=== PATIENT | female | born 1990 | race Caucasian/White ===

== ENCOUNTER 2019-03-12 07:10 | Inpatient (IN) | payer SELFPAY ==
[2019-03-12] MEDS ORDERED: Benzocaine/Menthol 20%-0.5% Spray 78 GM Cannister TOP PRN (07:57)
[2019-03-12] MEDS ORDERED: Lanolin 100% Cream 7 GM Tube TOP PRN (07:57)
[2019-03-12] MEDS ORDERED: Ibuprofen 400 MG Tab PO PRN (07:57)
[2019-03-12] MEDS ORDERED: oxyCODONE 5 MG Tab PO PRN (07:57)
[2019-03-12] MEDS ORDERED: Witch Hazel Medicated Pads 40/Jar TOP PRN (07:57)
[2019-03-12] MEDS ORDERED: Bisacodyl 10 MG Supp RECTAL PRN (07:57)
[2019-03-12] MEDS ORDERED: Docusate Sodium 100 MG Cap PO PRN (07:57)
[2019-03-12] MEDS ORDERED: Acetaminophen 500 MG Tab PO PRN ×2 (07:57)
--- NOTE | 2019-03-12 07:57 | PCM.LDHP ---
L&D History of Present Illness - General Date of Service: 03/05/19 Admit Problem/Dx: Admission Diagnosis/Problem Admission Diagnosis/Problem Source of Information: Patient History Limitations: Reports: No Limitations - History of Present Illness Improves with: Reports: None Worsens with: Reports: None Associated Symptoms: Reports: N - Related Data Allergies/Adverse Reactions: Allergies Allergy/AdvReac Type Severity Reaction Status Date / Time No Known Allergies Allergy Verified 02/08/19 13:26 Home Medications: Home Meds PNV #116/Iron Fumarate/FA/DHA [Expecta Combo Pack] 02/12/19 [History] H&P Review of Systems - Review of Systems: Review Of Systems: See Below General: Reports: No Symptoms HEENT: Reports: No Symptoms Pulmonary: Reports: No Symptoms Cardiovascular: Reports: No Symptoms Gastrointestinal: Reports: No Symptoms Genitourinary: Reports: No Symptoms Musculoskeletal: Reports: No Symptoms Skin: Reports: No Symptoms Psychiatric: Reports: No Symptoms Neurological: Reports: No Symptoms Hematologic/Lymphatic: Reports: No Symptoms Immunologic: Reports: No Symptoms L&D Exam - Exam Exam: See Below - Terry Score Terry Score Cervix Position: Anterior Terry Score Consistency: Soft Terry Score Effacement: >80% Terry Score Dilation: > 5 cm Terry Score Infant's Station: +1, +2 Terry Score Total: 13 Problem List Initiated/Reviewed/Updated: Yes Assessment/Plan Comment:: Pt. presented C/C and had a precepetus labor attended by the L&D personal
[2019-03-12] MEDS: Ibuprofen 800 MG Tab PO PRN ×2 (10:04→20:30)
[2019-03-13] MEDS: Ibuprofen 800 MG Tab PO PRN (03:35)
--- NOTE | 2019-03-13 10:52 | PCM.DCSUM1 ---
Discharge Summary - Hospital Course Diagnosis: Stroke: No - Discharge Data Discharge Date: 03/13/19 Discharge Disposition: Home, Self-Care 01 Condition: Good - Referral to Home Health Primary Care Physician: PCP None - Patient Instructions Diet: Usual Diet as Tolerated Activity: As Tolerated Showering/Bathing: May Shower - Discharge Plan Home Medications: Home Meds PNV #116/Iron Fumarate/FA/DHA [Expecta Combo Pack] 1 tab PO DAILY 02/12 [History] - Discharge Summary/Plan Comment DC Time >30 min.: Yes - General Info Date of Service: 03/13/19 Functional Status: Reports: Pain Controlled - Review of Systems General: Reports: No Symptoms HEENT: Reports: No Symptoms Pulmonary: Reports: No Symptoms Cardiovascular: Reports: No Symptoms Gastrointestinal: Reports: No Symptoms Genitourinary: Reports: No Symptoms Musculoskeletal: Reports: No Symptoms Skin: Reports: No Symptoms Neurological: Reports: No Symptoms Psychiatric: Reports: No Symptoms - Patient Data Vitals - Most Recent: Last Vital Signs Temp 36.5 C 03/13/19 08:00 Pulse 89 03/13/19 08:00 Resp 18 03/13/19 08:00 BP 107/71 03/13/19 08:00 Pulse Ox 99 03/13/19 08:00 Weight - Most Recent: 80.739 kg Lab Results - Last 24 hrs: Laboratory Results - last 24 hr 03/13/19 Range/Units 05:30 Hgb 11.1 L (12.0-16.0) g/dL Hct 34.3 L (36.0-46.0) % Med Orders - Current: Current Medications Acetaminophen (Tylenol Extra Strength) 500 mg PO Q4H PRN PRN Reason: Pain Acetaminophen (Tylenol Extra Strength) 1,000 mg PO Q4H PRN PRN Reason: Pain Benzocaine/Menthol (Dermoplast Pain Relief 20%-0.5% Hope) 78 gm TOP ASDIRECTED PRN PRN Reason: Perineal Comfort Measure Bisacodyl (Dulcolax) 10 mg RECTAL ONETIME PRN PRN Reason: Constipation Docusate Sodium (Colace) 100 mg PO BID PRN PRN Reason: Constipation Emollient Ointment (Lansinoh Hpa) 0 gm TOP ASDIRECTED PRN PRN Reason: Sore Nipples Ibuprofen (Motrin) 400 mg PO Q4H PRN PRN Reason: Pain Ibuprofen (Motrin) 800 mg PO Q6H PRN PRN Reason: Pain Last Admin: 03/13/19 03:35 Dose: 800 mg Oxycodone HCl (Oxycodone) 5 mg PO Q2H PRN PRN Reason: Pain Witch Roselia (Tucks) 1 pad TOP ASDIRECTED PRN PRN Reason: comfort care - Exam General: Reports: Alert, Oriented HEENT: Reports: Pupils Equal, Pupils Reactive, EOMI, Mucous Membr. Moist/[place] Neck: Reports: Supple Lungs: Reports: Clear to Auscultation, Normal Respiratory Effort Cardiovascular: Reports: Regular Rate, Regular Rhythm GI/Abdominal Exam: Normal Bowel Sounds, Soft, Non-Tender, No Organomegaly, No Distention, No Abnormal Bruit, No Mass, Pelvis Stable (Female) Exam: Normal External Exam, Normal Speculum Exam, Normal Bimanual Exam Rectal (Female) Exam: Normal Exam, Normal Rectal Tone Back Exam: Reports: Normal Inspection, Full Range of Motion Extremities: Normal Inspection, Normal Range of Motion, Non-Tender, No Pedal Edema, Normal Capillary Refill Skin: Reports: Warm, Dry, Intact Wound/Incisions: Reports: Healing Well Neurological: Reports: No New Focal Deficit Psy/Mental Status: Reports: Alert, Normal Affect, Normal Mood
== END 2019-03-13 11:52 | disposition home or self-care (01) | DRG 807 ==
LOC: MW.OBCHECK 07:10 → OBSVTOIN 07:16 → MW.OB 07:16 → MW.OBCHECK 07:16 → MW.OB 07:21 → MW.OBCHECK 07:21 → MW.OB 11:49
PROVIDERS: ADMIT Obstetrics & Gynecology; ATTEND Obstetrics & Gynecology
PROC: 10E0XZZ Delivery of Products of Conception, External Approach (ICD-10-PCS; principal; 2019-03-12)
DX: O62.3 Precipitate labor (principal); Z37.0 Single live birth; Z3A.39 39 weeks gestation of pregnancy
CPT/HCPCS: 36415; 59409; 85014; 85018; A9270-GY

== ENCOUNTER 2022-11-13 19:03 | Inpatient (IN) | payer SELFPAY ==
[2022-11-13] MEDS ORDERED: Water For Irrigation,Sterile 1,000 ML Container IRR PRN (19:49)
[2022-11-13] MEDS ORDERED: Lidocaine 1% 50 ML MDV INJECT PRN (19:49)
[2022-11-13] MEDS ORDERED: Sodium Chloride 0.9% 20 ML SDV IV PRN (19:49)
[2022-11-13] MEDS ORDERED: Tranexamic Acid 1,000 MG in Sodium Chloride 0.9% 100 ML IV PRN (19:49)
[2022-11-13] MEDS ORDERED: Methylergonovine 0.2 MG/1 ML Amp IM PRN (19:49)
[2022-11-13] MEDS ORDERED: Sodium Chloride 0.9% 2.5 ML Syringe FLUSH PRN (19:49)
[2022-11-13] MEDS ORDERED: Misoprostol 200 MCG Tab PO PRN (19:49)
[2022-11-13] MEDS ORDERED: Butorphanol 1 MG/ML SDV IVPUSH PRN (19:49)
[2022-11-13] MEDS ORDERED: Ondansetron 4 MG/2 ML SDV IVPUSH PRN (19:49)
[2022-11-13] MEDS ORDERED: Sodium Chloride 0.9% 10 ML Syringe FLUSH PRN (19:49)
[2022-11-13] MEDS ORDERED: Carboprost Tromethamine 250 MCG/1 mL Vial IM PRN (19:49)
[2022-11-13] MEDS ORDERED: Lactated Ringers 1,000 ML IV SCH (20:00)
[2022-11-13] MEDS ORDERED: Oxytocin/0.9 % Sodium Chloride 30 UNIT/500 ML BAG IV SCH (20:00)
[2022-11-13 20:08] LABS: HEMATOCRIT 37.3 % (36.0-46.0); HEMOGLOBIN 12.5 g/dL (12.0-16.0); MEAN CORPUSCULAR HEMOGLOBIN 29.2 pg (27.0-32.0); MEAN CORPUSCULAR HGB CONC 33.5 g/dL (31.0-37.0); MEAN CORPUSCULAR VOLUME 87.1 fL (80.0-98.0); MEAN PLATELET VOLUME 11.5 fL (7.40-12.00); RED BLOOD CELL COUNT 4.28 M/uL (4.30-5.90); WHITE BLOOD CELL COUNT,WBC 15.85 K/uL (4.0-11.0)
[2022-11-13] MEDS ORDERED: Benzocaine/Menthol 20%-0.5% Spray 78 GM Cannister TOP PRN (20:38)
[2022-11-13] MEDS ORDERED: Ibuprofen 800 MG Tab PO PRN (20:38)
[2022-11-13] MEDS ORDERED: oxyCODONE 5 MG Tab PO PRN (20:38)
[2022-11-13] MEDS ORDERED: Ibuprofen 400 MG Tab PO PRN (20:38)
[2022-11-13] MEDS ORDERED: Bisacodyl 10 MG Supp RECTAL PRN (20:38)
[2022-11-13] MEDS ORDERED: Acetaminophen 500 MG Tab PO PRN ×2 (20:38)
[2022-11-13] MEDS ORDERED: Witch Hazel Medicated Pads 40/Jar TOP PRN (20:38)
[2022-11-13] MEDS ORDERED: Docusate Sodium 100 MG Cap PO PRN (20:38)
[2022-11-13] MEDS ORDERED: Lanolin 100% Cream 7 GM Tube TOP PRN (20:38)
[2022-11-14 06:25] LABS: HEMATOCRIT 34.5 % (36.0-46.0); HEMOGLOBIN 11.3 g/dL (12.0-16.0)
== END 2022-11-15 12:15 | disposition home or self-care (01) | DRG 807 ==
LOC: MW.OB 19:03 → OBSVTOIN 20:42 → MW.OB 23:27
PROVIDERS: ADMIT Obstetrics & Gynecology Obstetrics; ATTEND Obstetrics & Gynecology Obstetrics
PROC: 10E0XZZ Delivery of Products of Conception, External Approach (ICD-10-PCS; principal; 2022-11-13)
PROC: 10907ZC Drainage of Amniotic Fluid, Therapeutic from Products of Conception, Via Natural or Artificial Opening (ICD-10-PCS; 2022-11-13)
DX: O99.52 Diseases of the respiratory system complicating childbirth (principal); Z37.0 Single live birth; Z3A.40 40 weeks gestation of pregnancy; O77.0 Labor and delivery complicated by meconium in amniotic fluid; J45.909 Unspecified asthma, uncomplicated
CPT/HCPCS: 36415; 59025; 85014; 85018; 85027; 86592; 86850; 86900; 86901; A9270-GY; J2590

== ENCOUNTER 2024-02-24 13:59 | Emergency (ER) | payer SELFPAY ==
[2024-02-24 14:52] LABS: CORONAVIRUS COVID-19 NAA NEGATIVE (NEGATIVE); INFLUENZA A NAA NEGATIVE (NEGATIVE); INFLUENZA B NAA NEGATIVE (NEGATIVE)
== END 2024-02-24 15:44 | disposition home or self-care (01) ==
LOC: MW.ED 13:59
DX: J18.9 Pneumonia, unspecified organism (principal); Z75.8 Other problems related to medical facilities and other health care; J45.909 Unspecified asthma, uncomplicated; Z90.49 Acquired absence of other specified parts of digestive tract
CPT/HCPCS: 0240U; 71046; 99285; 99284

== ENCOUNTER 2024-08-18 19:06 | Emergency (ER) | payer SELFPAY ==
[2024-08-18] MEDS ORDERED: Sodium Chloride 0.9% 20 ML SDV IV PRN (19:43)
[2024-08-18] MEDS ORDERED: Sodium Chloride 0.9% 2.5 ML Syringe FLUSH PRN (19:43)
[2024-08-18] MEDS ORDERED: Sodium Chloride 0.9% 10 ML Syringe FLUSH PRN (19:43)
[2024-08-18 19:49] LABS: BASOPHILS ABSOLUTE AUTO 0.02 K/uL (0.00-0.20); BASOPHILS PERCENT AUTO 0.2 % (0.0-1.0); EOSINOPHILS ABSOLUTE AUTO 0.03 K/uL (0.00-0.45); EOSINOPHILS PERCENT AUTO 0.3 % (0.0-6.0); HEMATOCRIT 41.2 % (37.0-47.0); HEMOGLOBIN 14.4 g/dL (12.0-16.0); IMMATURE GRAN ABSOLUTE AUTO 0.04 K/uL (0.00-0.05); IMMATURE GRAN PERCENT AUTO 0.4 % (0.0-0.4); LYMPHOCYTES ABSOLUTE AUTO 2.63 K/uL (1.00-4.80); LYMPHOCYTES PERCENT AUTO 24.5 % (24.0-44.0); MEAN CORPUSCULAR HEMOGLOBIN 28.9 pg (28.0-32.0); MEAN CORPUSCULAR VOLUME 82.6 fL (83.0-99.0); MEAN PLATELET VOLUME 11.9 fL (9.4-12.3); MONOCYTES ABSOLUTE AUTO 0.58 K/uL (0.00-0.80); MONOCYTES PERCENT AUTO 5.4 % (0.0-8.0); NEUTROPHILS ABSOLUTE AUTO 7.45 K/uL (1.80-7.70); NEUTROPHILS PERCENT AUTO 69.2 % (41.0-71.0); PLATELET COUNT,PLT 247 K/uL (150-400); RED BLOOD CELL COUNT 4.99 M/uL (4.10-5.30); WHITE BLOOD CELL COUNT,WBC 10.75 K/uL (3.9-11.3)
[2024-08-18 19:57] LABS: APPEARANCE,URINE CLEAR; BILIRUBIN,URINE NEGATIVE (NEGATIVE); COLOR,URINE YELLOW; GLUCOSE,URINE NEGATIVE (NEGATIVE); KETONES,URINE 40 mg/dL (NEGATIVE); LEUKOCYTE ESTERASE,URINE NEGATIVE (NEGATIVE); NITRITE,URINE NEGATIVE (NEGATIVE); OCCULT BLOOD,URINE TRACE-INTACT (NEGATIVE); PROTEIN,URINE NEGATIVE (NEGATIVE); UROBILINOGEN,URINE 0.2 EU/dL (<2.0)
[2024-08-18 20:04] LABS: BACTERIA,URINE FEW (NEGATIVE); EPITHELIAL CELLS,URINE FEW (NONE-FEW); RBC,URINE 0-2 (0-2/HPF); WBC,URINE 0-2 (0-5/HPF)
[2024-08-18 20:23] LABS: A/G RATIO 1.2 (0.9-1.6); ALANINE AMINOTRANSFERASE,ALT 30 IU/L (14-63); ALBUMIN 4.6 g/dL (3.4-5.0); ALKALINE PHOSPHATASE 107 U/L (46-116); ASPARTATE AMNIOTRANSFERASE,AST 13 IU/L (15-37); BILIRUBIN TOTAL 0.6 mg/dL (0.2-1.0); BLOOD UREA NITROGEN,BUN 15 mg/dL (7.0-18.0); CALCIUM 9.7 mg/dL (8.5-10.1); CARBON DIOXIDE,CO2 19.8 mmol/L (21.0-32.0); CHLORIDE,CL 105 mmol/L (98-107); CREATININE 0.9 mg/dL (0.6-1.0); EST CRCL DRUG DOSING (CG) 79.25 mL/min; ESTIMATED GFR 86 mL/min (>60); GLUCOSE RANDOM 100 mg/dL (74-106); LIPASE 24 U/L (16-77); MAGNESIUM 2.2 mg/dL (1.8-2.4); POTASSIUM,K 3.6 mmol/L (3.5-5.1); PRO B-TYPE NATRIUR PEPT,BNPPRO 32 pg/mL (0-125); PROTEIN TOTAL,TP 8.3 g/dL (6.4-8.2); SODIUM,NA 142 mmol/L (136-145)
[2024-08-18] MEDS: Albuterol/Ipratropium 3.0-0.5 MG/3 ML Neb Soln NEB ONE (21:53)
== END 2024-08-18 22:42 | disposition home or self-care (01) ==
LOC: MW.ED 19:06
DX: R05.9 Cough, unspecified (principal); R06.02 Shortness of breath; J45.909 Unspecified asthma, uncomplicated; Z79.51 Long term (current) use of inhaled steroids; Z79.899 Other long term (current) drug therapy
CPT/HCPCS: 36415; 71046; 80053; 81001; 83690; 83735; 83880; 84484; 84703; 85025; 85379; 87428; 93005; 99285; J7620; 93010; 99284; A9270-GY

== ENCOUNTER 2024-08-20 00:11 | Emergency (ER) | payer SELFPAY | END 2024-08-20 03:30 | disposition home or self-care (01) | LOC: MW.ED 00:11 | DX: R05.3 Chronic cough (principal); J45.909 Unspecified asthma, uncomplicated; Z79.899 Other long term (current) drug therapy | CPT/HCPCS: 99282; 99283 ==